=== PATIENT | male | born 1970 | race Caucasian/White ===

== ENCOUNTER 2017-07-31 16:44 | Emergency (ER) | payer BC | END 2017-07-31 17:52 | disposition home or self-care (01) | LOC: M ED 16:44 | DX: S93.402A Sprain of unspecified ligament of left ankle, initial encounter (principal); W19.XXXA Unspecified fall, initial encounter; Y92.098 Other place in other non-institutional residence as the place of occurrence of the external cause; J30.81 Allergic rhinitis due to animal (cat) (dog) hair and dander | CPT/HCPCS: 73610 ==

== ENCOUNTER 2021-02-15 08:07 | Emergency (ER) | payer BC ==
[~2021-02-15] VITALS: Ht 177.8 cm; Wt 88.6 kg
[~2021-02-15 08:07] MED LIST: IBUP-1022 PO
[2021-02-15] MEDS ORDERED: NAPR220C14 PO (08:16)
[2021-02-15] MEDS ORDERED: PERCOCET 5MG/325MG TAB PO ONE (10:50)
[2021-02-15] MEDS ORDERED: LIDOCAINE 5% (LIDODERM) PATCH TD ONE (10:50)
[2021-02-15] MEDS ORDERED: methocarbamoL 750 MG TAB PO ONE (10:50)
[2021-02-15] MEDS ORDERED: PERC5TAB12 PO ×2 (11:46→11:49)
[2021-02-15] MEDS ORDERED: LIDO5DIS41 TOP (11:50)
[2021-02-15] MEDS ORDERED: METH-1164 PO (11:50)
[2021-02-15 12:06] VITALS: BP 128/74
[2021-02-15] MEDS ORDERED: **NOTE PATIENT COMMENT** MISC XX SCH (21:00)
== END 2021-02-15 12:08 | disposition home or self-care (01) ==
LOC: M ED 08:07
DX: M54.30 Sciatica, unspecified side (principal); J30.81 Allergic rhinitis due to animal (cat) (dog) hair and dander; F17.200 Nicotine dependence, unspecified, uncomplicated